=== PATIENT | female | born 1985 | race American Indian/Alaskan Native ===

== ENCOUNTER 2017-01-03 23:55 | Emergency (ER) | payer SELFPAY ==
[2017-01-04 04:20] VITALS: BP 116/82
[2017-01-04] MEDS ORDERED: MOTRIN PO ONE (04:31)
--- NOTE | 2017-01-04 05:41 | Emergency Department Report ---
HPI - General Chief Complaint: Dental/Oral Time Seen by Provider: 01/04/17 04:45 - HPI HPI: Patient here reported toothache 1 week on the left jaw lower and upper tooth. Denies any fever or chills. Denies any nausea or vomiting. She said her toothache is 10 out of 10. She says she had 4 wisdom tooth pulled in the past and she has a dentist. She says she did not call her dentist. ED Past Medical Hx - Past Medical History Previous Medical History?: No - Surgical History Past Surgical History?: Yes Additional Surgical History: TUBAL LIGATION - Family History Family history: no significant - Social History Smoking Status: Never Smoker Substance Use Type: None - Medications Home Medications: Home Medications Medication Instructions Recorded Confirmed Last Taken Type Ciprofloxacin HCl [Ciprofloxacin 500 mg PO BID #14 tablet 05/02/15 Unknown Rx TAB] Ondansetron [Zofran TAB] 4 mg PO Q8HR PRN #14 tablet 05/02/15 Unknown Rx metroNIDAZOLE [Flagyl TAB] 500 mg PO Q6HR #28 tablet 05/02/15 Unknown Rx Amoxicillin [Amoxicillin TAB] 875 mg PO BID #20 tablet 01/04/17 Unknown Rx Ibuprofen [Motrin] 800 mg PO Q8HR PRN #15 tablet 01/04/17 Unknown Rx ED Review of Systems ROS: Stated complaint: TOOTHACHE Other details as noted in HPI Comment: All other systems reviewed and negative Constitutional: denies: chills, fever Eyes: denies: vision change ENT: dental pain. denies: throat pain Respiratory: no symptoms reported Cardiovascular: denies: chest pain, palpitations, edema, syncope Gastrointestinal: denies: nausea, vomiting Skin: denies: rash Neurological: denies: headache Physical Exam - Physical Exam Vital Signs: Vital Signs 01/04/17 04:15 Temperature 98.3 F Pulse Rate 71 Respiratory 16 Rate Blood Pressure 116/82 Blood Pressure 116/82 [Left] O2 Sat by Pulse 100 Oximetry General: This is a 31-year-old female well-nourished in no acute distress. Physical Exam: Head: Normocephalic atraumatic Mouth: Moist, no pharyngeal exudate or erythema. Uvula is midline and oral airway is patent. No facial swelling. No peritonsillar abscesses. Dental caries noted without any mucosal swelling or dental tenderness. Nose: Nasal mucosa normal .Maxillary and frontal sinuses nontender to palpate Neck: Supple, no C-spine tenderness, no tracheal deviation. Nontender to palpate. no adenopathy Ears: Bilateral TMs pearly levine .bilateral EAC without any redness swelling or drainage. Eyes: Bilateral pupils equal and reactive to light, bilateral EOM intact. Bilateral sclera and conjunctiva without injection. Normal accommodation. No Lungs: Clear to auscultate bilaterally no rhonchi wheezes or rales. Normal work of breathing extremity; No CCE. +2 pulses. No neurovascular compromise Cardiovascular: S1-S2, regular rate rhythm. No murmurs. Skin: clean Dry and intact no rash no lesions Psych: Normal mood and behavior ED Course Vital Signs 01/04/17 04:15 Temperature 98.3 F Pulse Rate 71 Respiratory 16 Rate Blood Pressure 116/82 Blood Pressure 116/82 [Left] O2 Sat by Pulse 100 Oximetry - Reevaluation(s) Reevaluation #1: 01/04/17 05:51 Patient received Motrin 800 mg in triage area but she still complaining of toothache to the left tooth. She was given Tylenol 3 2 tablets. ED Medical Decision Making - Medical Decision Making ED course: She says she has a dentist therefore discussed with her that she needs to call her dentist tomorrow and schedule appointment for follow-up visit. Patient given Motrin 800 mg in emergency room and later Tylenol 3 2 tablets emergency room for dental pain. He does not have any signs of dental abscess. Patient discharged home with her family in stable condition with prescription for Motrin and amoxicillin. Critical care attestation.: If time is entered above; I have spent that time in minutes in the direct care of this critically ill patient, excluding procedure time. ED Disposition Clinical Impression: Toothache, Dental caries Disposition: DISCHARGED TO HOME OR SELFCARE Is pt being admited?: No Does the pt Need Aspirin: No Condition: Stable Instructions: Toothache (ED) Additional Instructions: F/U with Dentist and schedule appointment Take antibiotic as prescribed Prescriptions: Amoxicillin [Amoxicillin TAB] 875 mg PO BID #20 tablet Ibuprofen [Motrin] 800 mg PO Q8HR PRN #15 tablet PRN Reason: Toothache Referrals: [facility] [Outside] - 2-3 Days Forms: Work/School Release Form(ED)
[2017-01-04] MEDS ORDERED: TYLENOL #3 PO ONE (05:48)
== END 2017-01-04 06:30 | disposition home or self-care (01) ==
LOC: ED 23:55
DX: K02.9 Dental caries, unspecified (principal); Z98.51 Tubal ligation status
CPT/HCPCS: 99282

== ENCOUNTER 2017-07-08 20:54 | Emergency (ER) | payer SELFPAY ==
[2017-07-08 22:03] LABS: Alanine Aminotransferase 16 units/L (7-56); Albumin 4.4 g/dL (3.9-5); Albumin/Globulin Ratio 1.8 %; Alkaline Phosphatase 42 units/L (35-129); Anion Gap 23 mmol/L; Blood Urea Nitrogen 7 mg/dL (7-17); Carbon Dioxide 19 mmol/L (22-30); Chloride 102.6 mmol/L (98-107); Glucose 90 mg/dL (65-100); Lipase 12 units/L (13-60); Potassium 4.1 mmol/L (3.6-5.0); Sodium 140 mmol/L (137-145); Total Protein 6.9 g/dL (6.3-8.2)
[2017-07-08 22:04] LABS: Hematocrit 42.7 % (30.3-42.9); Hemoglobin 14.2 gm/dl (10.1-14.3); Mean Corpuscular HGB Conc 33 % (30-34); Mean Corpuscular Hemoglobin 31 pg (28-32); Mean Corpuscular Volume 93 fl (79-97); Platelet Count 219 K/mm3 (140-440); Red Blood Count 4.59 M/mm3 (3.65-5.03); White Blood Count 9.3 K/mm3 (4.5-11.0)
[2017-07-08 22:17] LABS: Calcium 9.4 mg/dL (8.4-10.2)
[2017-07-09 02:30] LABS: Bacteria,Urine 1+ /HPF (Negative); Bilirubin,Urine NEG (Negative); Blood,Urine SM (Negative); Ketones,Urine 20 mg/dL (Negative); Leukocyte Esterase,Urine TR (Negative); Mucus,Urine 3+ /HPF; Nitrite,Urine NEG (Negative); Trichomonas,Urine FEW /HPF
[2017-07-09] MEDS ORDERED: MACROBID PO ONE (02:44)
[2017-07-09] MEDS ORDERED: NACL 0.9% 1000 ML 1,000 ML IV ONE (03:08)
[2017-07-09] MEDS ORDERED: MORPHINE IV ONE (03:08)
--- NOTE | 2017-07-09 03:13 | Emergency Department Report ---
HPI - General Chief Complaint: Abdominal Pain Time Seen by Provider: 07/09/17 02:43 - HPI HPI: This is a 31 year-old female presents to the emergency department via EMS with complaint of lower abdominal and/or pelvic pain that has been going on since this morning. She says that over the past 2 months, when she has a menstrual cycle, she has this severe lower abdominal and/or pelvic pain. She has some nausea but denies any dysuria, vaginal discharge. She does have some vaginal bleeding as she started her menstrual cycle today. She took a few naproxen prior to presentation. She does not have a primary care physician. No recent travel or sick contacts at home. She has a history of a tubal ligation. ED Past Medical Hx - Past Medical History Hx Psychiatric Treatment: Yes (depression) - Surgical History Additional Surgical History: TUBAL LIGATION - Social History Smoking Status: Current Every Day Smoker Substance Use Type: None - Medications Home Medications: Home Medications Medication Instructions Recorded Confirmed Last Taken Type Ciprofloxacin HCl [Ciprofloxacin 500 mg PO BID #14 tablet 05/02/15 Unknown Rx TAB] Ondansetron [Zofran TAB] 4 mg PO Q8HR PRN #14 tablet 05/02/15 Unknown Rx metroNIDAZOLE [Flagyl TAB] 500 mg PO Q6HR #28 tablet 05/02/15 Unknown Rx Amoxicillin [Amoxicillin TAB] 875 mg PO BID #20 tablet 01/04/17 Unknown Rx Ibuprofen [Motrin] 800 mg PO Q8HR PRN #15 tablet 01/04/17 Unknown Rx HYDROcodone/APAP 5-325 [[place] 1 each PO Q6HR PRN #10 tablet 07/09/17 Unknown Rx 5/325] Nitrofurantoin [place]/M-Cryst 100 mg PO Q12HR #14 capsule 07/09/17 Unknown Rx [Macrobid CAP] ED Review of Systems ROS: Stated complaint: LOWER ABD PAIN Other details as noted in HPI Comment: All other systems reviewed and negative Constitutional: denies: chills, fever Eyes: denies: eye pain, eye discharge, vision change ENT: denies: ear pain, throat pain Respiratory: denies: cough, shortness of breath, wheezing Cardiovascular: denies: palpitations, edema Gastrointestinal: abdominal pain, nausea Genitourinary: denies: dysuria, hematuria Musculoskeletal: denies: joint swelling, arthralgia Skin: denies: rash, lesions Neurological: denies: headache, weakness, paresthesias Physical Exam - Physical Exam Vital Signs: Vital Signs 07/08/17 21:08 Temperature 97.9 F Pulse Rate 65 Respiratory 18 Rate Blood Pressure 123/76 O2 Sat by Pulse 100 Oximetry ED Course Vital Signs 07/08/17 21:08 Temperature 97.9 F Pulse Rate 65 Respiratory 18 Rate Blood Pressure 123/76 O2 Sat by Pulse 100 Oximetry ED Medical Decision Making - Lab Data Result diagrams: 07/08/17 21:30 07/08/17 21:30 - EKG Data -: EKG Interpreted by Me EKG shows normal: sinus rhythm (PACS), axis, intervals, QRS complexes, ST-T waves Rate: normal - EKG Data When compared to previous EKG there are: previous EKG unavailable Interpretation: normal EKG - Radiology Data Radiology results: report reviewed, image reviewed interpreted by me: Chest x-ray does not show any acute process. There are no pleural effusions, obvious pneumonia and there is no pneumothorax. Abdominal x-ray shows some nonspecific nonobstructive bowel gas. There is a small amount of stool seen. Questionably one or 2 air-fluid levels. PROCEDURE: Pelvic ultrasound, transabdominal and transvaginal with Doppler imaging. TECHNIQUE: Real-time transabdominal sonography in multiple planes of the pelvis was performed. The pelvic structures were not optimally visualized. Transvaginal sonography was then performed to better evaluate the structures and/or abnormalities described below with image documentation. Grayscale, color flow Doppler imaging and velocity spectral waveform analysis of the ovaries was employed (duplex imaging). CPT 24154, 69068, and 78506 HISTORY: pelvic pain COMPARISON: No prior studies are available for comparison. FINDINGS: UTERUS Size: 8.3 x 4.4 cm. Endometrial thickness: 5 mm. Orientation: anteverted. Cervix: Normal. Fibroids/masses: There are few calcifications identified in the uterus. These are near the endometrial pattern.. RIGHT Ovary: 3.3 x 2.4 x 2.2 cm. Appearance: Complex cysts measures 2 centimeters. Doppler images: Normal spectral waveforms and color flow. The systolic and diastolic velocities are within normal limits. LEFT Ovary: 4.3 x 3.7 x 3.1 cm. Appearance: Complex cysts identified the largest measuring 3.9 centimeters. A 2nd measuring 1.5 centimeters.. Doppler images: Normal spectral waveforms and color flow. The systolic and diastolic velocities are within normal limits. Pelvic fluid: None. Other: None. IMPRESSION: There are few calcifications identified in the anterior uterine myometrium. The endometrial pattern is normal. Complex cysts are identified in both ovaries, the largest on the left ovary measures 3.9 centimeters. - Medical Decision Making 31-year-old female presents with some lower abdominal and/or pelvic pain that started today but occurred last month about the time of her menstrual cycle, just like today. Labs are unremarkable except for a mild urinary tract infection. Patient is not . Abdominal x-ray does not show any acute process. Transvaginal ultrasound does not show any signs of torsion but there are bilateral complex ovarian cysts. Vital signs stable throughout her ED course. She'll be given referrals for [facility] and some pain medication as well as a course of Macrobid. She has been encouraged to return to the ER with any worsening of her symptoms or any acute distress. - Differential Diagnosis UTI, , fibroids, ovarian cyst, ovarian torsion Critical Care Time: No Critical care attestation.: If time is entered above; I have spent that time in minutes in the direct care of this critically ill patient, excluding procedure time. ED Disposition Clinical Impression: Dysmenorrhea, Complex cyst of left ovary, Complex cyst of right ovary UTI (urinary tract infection) Qualifiers: Urinary tract infection type: acute cystitis Hematuria presence: without hematuria Qualified Code(s): N30.00 - Acute cystitis without hematuria Disposition: - TO HOME OR SELFCARE Is pt being admited?: No Condition: Stable Instructions: Abdominal Pain (ED), Ovarian Cyst (ED), Urinary Tract Infection in Women (ED) Additional Instructions: These follow-up with a primary care physician in the next few days if possible. I have given you multiple referrals for [facility] physicians to follow up regarding your painful menstrual cycles and your ovarian cysts. Return to the emergency Department with any worsening of your symptoms or any acute distress. You have been prescribed a medication that is sedating and therefore should not be taken prior to driving, working, and responsible for children and in no way should be mixed with alcohol of any quantity. Prescriptions: HYDROcodone/APAP 5-325 [[place] 5/325] 1 each PO Q6HR PRN #10 tablet PRN Reason: Pain Nitrofurantoin [place]/M-Cryst [Macrobid CAP] 100 mg PO Q12HR #14 capsule Referrals: PRIMARY CARE [Primary Care Provider] - 3-5 Days [facility] [Provider Group] - 3-5 Days [facility] [Provider Group] - 3-5 Days [facility] [Provider Group] - 3-5 Days Time of Disposition: 05:16
[2017-07-09] MEDS ORDERED: ZOFRAN ONE (03:50)
[2017-07-09] MEDS ORDERED: ZOFRAN IV ONE (03:57)
--- NOTE | 2017-07-09 05:01 | Ultrasound Report ---
FINAL REPORT PROCEDURE: Pelvic ultrasound, transabdominal and transvaginal with Doppler imaging. TECHNIQUE: Real-time transabdominal sonography in multiple planes of the pelvis was performed. The pelvic structures were not optimally visualized. Transvaginal sonography was then performed to better evaluate the structures and/or abnormalities described below with image documentation. Grayscale, color flow Doppler imaging and velocity spectral waveform analysis of the ovaries was employed (duplex imaging). CPT 20080, 77109, and 15024 HISTORY: pelvic pain COMPARISON: No prior studies are available for comparison. FINDINGS: UTERUS Size: 8.3 x 4.4 cm. Endometrial thickness: 5 mm. Orientation: anteverted. Cervix: Normal. Fibroids/masses: There are few calcifications identified in the uterus. These are near the endometrial pattern.. RIGHT Ovary: 3.3 x 2.4 x 2.2 cm. Appearance: Complex cysts measures 2 centimeters. Doppler images: Normal spectral waveforms and color flow. The systolic and diastolic velocities are within normal limits. LEFT Ovary: 4.3 x 3.7 x 3.1 cm. Appearance: Complex cysts identified the largest measuring 3.9 centimeters. A 2nd measuring 1.5 centimeters.. Doppler images: Normal spectral waveforms and color flow. The systolic and diastolic velocities are within normal limits. Pelvic fluid: None. Other: None. IMPRESSION: There are few calcifications identified in the anterior uterine myometrium. The endometrial pattern is normal. Complex cysts are identified in both ovaries, the largest on the left ovary measures 3.9 centimeters.
--- NOTE | 2017-07-09 05:03 | Ultrasound Report ---
FINAL REPORT PROCEDURE: Pelvic ultrasound, transabdominal and transvaginal with Doppler imaging. TECHNIQUE: Real-time transabdominal sonography in multiple planes of the pelvis was performed. The pelvic structures were not optimally visualized. Transvaginal sonography was then performed to better evaluate the structures and/or abnormalities described below with image documentation. Grayscale, color flow Doppler imaging and velocity spectral waveform analysis of the ovaries was employed (duplex imaging). CPT 10490, 79114, and 94691 HISTORY: pelvic pain COMPARISON: No prior studies are available for comparison. FINDINGS: UTERUS Size: 8.3 x 4.4 cm. Endometrial thickness: 5 mm. Orientation: anteverted. Cervix: Normal. Fibroids/masses: There are few calcifications identified in the uterus. These are near the endometrial pattern.. RIGHT Ovary: 3.3 x 2.4 x 2.2 cm. Appearance: Complex cysts measures 2 centimeters. Doppler images: Normal spectral waveforms and color flow. The systolic and diastolic velocities are within normal limits. LEFT Ovary: 4.3 x 3.7 x 3.1 cm. Appearance: Complex cysts identified the largest measuring 3.9 centimeters. A 2nd measuring 1.5 centimeters.. Doppler images: Normal spectral waveforms and color flow. The systolic and diastolic velocities are within normal limits. Pelvic fluid: None. Other: None. IMPRESSION: There are few calcifications identified in the anterior uterine myometrium. The endometrial pattern is normal. Complex cysts are identified in both ovaries, the largest on the left ovary measures 3.9 centimeters.
[2017-07-09 05:32] VITALS: BP 112/73
--- NOTE | 2017-07-09 05:32 | XRay Report ---
FINAL REPORT PROCEDURE: XR ABDOMEN 2V TECHNIQUE: Abdominal series, including supine and upright AP views. HISTORY: abd pain COMPARISON: No prior studies are available for comparison. FINDINGS: Bowel gas pattern:Nonobstructive . Masses or calcifications:None . Bony structures:No significant abnormality . Pneumoperitoneum:None . Other:No significant findings . IMPRESSION: No acute abnormality.
--- NOTE | 2017-07-09 07:08 | XRay Report ---
Chest 2 views: History: Chest pain. Findings: Normal cardiomediastinal silhouette. Trachea is midline. No consolidation, pneumothorax or pleural effusion. Impression: No acute cardiopulmonary findings.
== END 2017-07-09 05:20 | disposition home or self-care (01) ==
LOC: ED 20:54
DX: N39.0 Urinary tract infection, site not specified (principal); N94.6 Dysmenorrhea, unspecified; N83.202 Unspecified ovarian cyst, left side; N83.201 Unspecified ovarian cyst, right side; F17.210 Nicotine dependence, cigarettes, uncomplicated
CPT/HCPCS: 36415; 71020; 74020; 76830; 80053; 81001; 81025; 83690; 84484; 85025; 93005; 93010; 93975; 96361; 96374; 96375; 99285; J2270; J2405; J7030

== ENCOUNTER 2017-11-19 00:35 | Emergency (ER) | payer SELFPAY ==
[2017-11-19 02:11] VITALS: BP 104/71
[2017-11-19 02:50] LABS: Basophils % (Auto) 0.3 % (0.0-1.8); Hemoglobin 13.9 gm/dl (10.1-14.3); Lymphocytes # (Auto) 1.3 K/mm3 (1.2-5.4); Lymphocytes % (Auto) 11.2 % (13.4-35.0); Mean Corpuscular HGB Conc 34 % (30-34); Mean Corpuscular Hemoglobin 32 pg (28-32); Mean Corpuscular Volume 95 fl (79-97); Monocytes # (Auto) 0.7 K/mm3 (0.0-0.8); Monocytes % (Auto) 6.5 % (0.0-7.3); Platelet Count 215 K/mm3 (140-440); Red Blood Count 4.32 M/mm3 (3.65-5.03); Red Cell Distribution Width 13.6 % (13.2-15.2)
[2017-11-19 03:16] LABS: Alanine Aminotransferase 20 units/L (7-56); Albumin 4.3 g/dL (3.9-5); BUN/Creatinine Ratio 14; Blood Urea Nitrogen 7 mg/dL (7-17); Calcium 9.1 mg/dL (8.4-10.2); Hemolysis Index 10
[2017-11-19 07:11] LABS: Bacteria,Urine 1+ /HPF (Negative); Bilirubin,Urine NEG (Negative); Blood,Urine LG (Negative); Color,Urine Amber (Yellow); Mucus,Urine 3+ /HPF; Nitrite,Urine NEG (Negative); Sperm,Urine 2+ /HPF (NP)
[2017-11-19 07:21] LABS: RBC,Urine > 182.0 /HPF (0.0-6.0)
== END 2017-11-19 05:44 | disposition left against medical advice (07) ==
LOC: ED 00:35
DX: R10.30 Lower abdominal pain, unspecified (principal); Z53.21 Procedure and treatment not carried out due to patient leaving prior to being seen by health care provider
CPT/HCPCS: 36415; 80053; 81001; 84703; 85025

== ENCOUNTER 2017-12-14 19:03 | Emergency (ER) | payer SELFPAY ==
[2017-12-14 19:40] VITALS: BP 116/67
[2017-12-14 20:11] LABS: Basophils % (Auto) 0.5 % (0.0-1.8); Eosinophils % (Auto) 0.1 % (0.0-4.3); Hematocrit 45.8 % (30.3-42.9); Lymphocytes # (Auto) 1.9 K/mm3 (1.2-5.4); Lymphocytes % (Auto) 21.2 % (13.4-35.0); Mean Corpuscular HGB Conc 33 % (30-34); Mean Corpuscular Hemoglobin 32 pg (28-32); Mean Corpuscular Volume 97 fl (79-97); Monocytes # (Auto) 0.8 K/mm3 (0.0-0.8); Monocytes % (Auto) 9.1 % (0.0-7.3); Platelet Count 229 K/mm3 (140-440); Red Blood Count 4.72 M/mm3 (3.65-5.03); Red Cell Distribution Width 14.5 % (13.2-15.2)
[2017-12-14 20:57] LABS: Albumin 4.8 g/dL (3.9-5); BUN/Creatinine Ratio 15; Blood Urea Nitrogen 9 mg/dL (7-17); Calcium 9.8 mg/dL (8.4-10.2); Hemolysis Index 108; Lipase 13 units/L (13-60)
[2017-12-14 21:08] LABS: Alanine Aminotransferase 14 units/L (7-56)
== END 2017-12-15 00:30 | disposition left against medical advice (07) ==
LOC: ED 19:03
DX: R10.9 Unspecified abdominal pain (principal); R11.2 Nausea with vomiting, unspecified; Z53.21 Procedure and treatment not carried out due to patient leaving prior to being seen by health care provider
CPT/HCPCS: 36415; 80053; 83690; 84703; 85025

== ENCOUNTER 2018-11-19 21:49 | Emergency (ER) | payer SELFPAY ==
--- NOTE | 2018-11-20 05:22 | Emergency Department Report ---
ED Female HPI - General Chief complaint: Urogenital-Female Stated complaint: FOREIGN OBJECT IN VAGINAL AREA Time Seen by Provider: 11/20/18 03:16 Source: patient Mode of arrival: Ambulatory Limitations: No Limitations - History of Present Illness Complaint: vaginal discharge, other (33-year-old -Stateless female presents emergency department complaining of possible tampon stuck of the present time area for over one year. States she was at the emergency department a year ago when the transportation engineering technician told her she felt she saw tampon in the vaginal canal, however, the provider seen her on that they did not feel it necessary to to attempt to go evaluate and remove. A few days a few weeks later. She went and was evaluated by another physician who told her that they did not see any foreign object in her vaginal region. She was again reevaluated a few months following that visit and she was advised of the same findings of no foreign bodies in the vaginal canal. She presents today for reevaluation to determine whether we think we see a foreign body in her vaginal canal. She thinks messiness straining yesterday. She reports vaginal odor and vaginal discharge. No fever, chills, sweats) Radiation: non-radiating Severity: mild Consistency: constant Improves with: none Worsens with: none Are you Now?: No - Related Data Previous Rx's Medication Instructions Recorded Last Taken Type Ciprofloxacin HCl [Ciprofloxacin 500 mg PO BID #14 tablet 05/02/15 Unknown Rx TAB] Ondansetron [Zofran TAB] 4 mg PO Q8HR PRN #14 tablet 05/02/15 Unknown Rx metroNIDAZOLE [Flagyl TAB] 500 mg PO Q6HR #28 tablet 05/02/15 Unknown Rx Amoxicillin [Amoxicillin TAB] 875 mg PO BID #20 tablet 01/04/17 Unknown Rx Ibuprofen [Motrin] 800 mg PO Q8HR PRN #15 tablet 01/04/17 Unknown Rx HYDROcodone/APAP 5-325 [[place] 1 each PO Q6HR PRN #10 tablet 07/09/17 Unknown Rx 5/325] Nitrofurantoin [place]/M-Cryst 100 mg PO Q12HR #14 capsule 07/09/17 Unknown Rx [Macrobid CAP] metroNIDAZOLE [Flagyl] 500 mg PO Q12HR #14 tab 11/20/18 Unknown Rx Allergies Allergy/AdvReac Type Severity Reaction Status Date / Time No Known Allergies Allergy Unverified 01/04/14 22:45 ED Review of Systems ROS: Stated complaint: FOREIGN OBJECT IN VAGINAL AREA Other details as noted in HPI Constitutional: denies: chills, fever Eyes: denies: eye pain, eye discharge, vision change ENT: denies: ear pain, throat pain Respiratory: denies: cough, shortness of breath, wheezing Cardiovascular: denies: chest pain, palpitations Endocrine: no symptoms reported Gastrointestinal: denies: abdominal pain, nausea, diarrhea Genitourinary: denies: urgency, dysuria, discharge Musculoskeletal: denies: back pain, joint swelling, arthralgia Skin: denies: rash, lesions Neurological: denies: headache, weakness, paresthesias Psychiatric: denies: anxiety, depression Hematological/Lymphatic: denies: easy bleeding, easy bruising ED Past Medical Hx - Past Medical History Previous Medical History?: Yes Hx Psychiatric Treatment: Yes (depression) Additional medical history: cyst on gallbladder, Brain injury - Surgical History Past Surgical History?: Yes Additional Surgical History: TUBAL LIGATION - Social History Smoking Status: Current Every Day Smoker Substance Use Type: None - Medications Home Medications: Home Medications Medication Instructions Recorded Confirmed Last Taken Type Ciprofloxacin HCl [Ciprofloxacin 500 mg PO BID #14 tablet 05/02/15 Unknown Rx TAB] Ondansetron [Zofran TAB] 4 mg PO Q8HR PRN #14 tablet 05/02/15 Unknown Rx metroNIDAZOLE [Flagyl TAB] 500 mg PO Q6HR #28 tablet 05/02/15 Unknown Rx Amoxicillin [Amoxicillin TAB] 875 mg PO BID #20 tablet 01/04/17 Unknown Rx Ibuprofen [Motrin] 800 mg PO Q8HR PRN #15 tablet 01/04/17 Unknown Rx HYDROcodone/APAP 5-325 [[place] 1 each PO Q6HR PRN #10 tablet 07/09/17 Unknown Rx 5/325] Nitrofurantoin [place]/M-Cryst 100 mg PO Q12HR #14 capsule 07/09/17 Unknown Rx [Macrobid CAP] metroNIDAZOLE [Flagyl] 500 mg PO Q12HR #14 tab 11/20/18 Unknown Rx ED Physical Exam - General Limitations: No Limitations General appearance: alert, in no apparent distress - Head Head exam: Present: atraumatic, normocephalic - Eye Eye exam: Present: normal appearance - ENT ENT exam: Present: mucous membranes moist - Neck Neck exam: Present: normal inspection - Respiratory Respiratory exam: Present: normal lung sounds bilaterally. Absent: respiratory distress - Cardiovascular Cardiovascular Exam: Present: regular rate, normal rhythm. Absent: systolic mu rmur, diastolic murmur, rubs, gallop - GI/Abdominal GI/Abdominal exam: Present: soft, normal bowel sounds - External exam: Present: normal external exam Speculum exam: Present: vaginal discharge (very heavy vaginal discharge. Evaluate the entire code male also around the cervix. No foreign body was appreciated) Bi-manual exam: Present: uterine tenderness - Extremities Exam Extremities exam: Present: normal inspection - Back Exam Back exam: Present: normal inspection - Neurological Exam Neurological exam: Present: alert, oriented X3 - Psychiatric Psychiatric exam: Present: normal affect, normal mood - Skin Skin exam: Present: warm, dry, intact, normal color. Absent: rash ED Medical Decision Making - Radiology Data Radiology results: report reviewed Ultrasound showed several left ovarian followed used measuring less than 2 cm Critical care attestation.: If time is entered above; I have spent that time in minutes in the direct care of this critically ill patient, excluding procedure time. ED Disposition Clinical Impression: Bacterial vaginal infection, Ovarian cyst, follicular Disposition: DC-01 TO HOME OR SELFCARE Is pt being admited?: No Does the pt Need Aspirin: No Condition: Stable Instructions: Bacterial Vaginosis (ED), Ovarian Cyst (ED) Prescriptions: metroNIDAZOLE [Flagyl] 500 mg PO Q12HR #14 tab Referrals: [facility] [Other] - 3-5 Days Forms: STI Treatment and Prevention
[2018-11-20 05:26] LABS: Bilirubin,Urine NEG (Negative); Blood,Urine NEG (Negative); Calcium Oxalate Crystals,Urine 1+; Color,Urine Yellow (Yellow); Mucus,Urine 1+ /HPF; Protein,Urine <15 mg/dL mg/dL (Negative)
--- NOTE | 2018-11-20 06:31 | Ultrasound Report ---
FINAL REPORT EXAM: US EXAM PELVIC COMPLETE HISTORY: SUSPECT FB TO PELVIS & HAS DISCHARGE TOO COMPARISONS: 07/09/2017 FINDINGS: Transabdominal grayscale, color and spectral Doppler pelvic ultrasound The uterus appears retroflexed/retroverted and measures approximately 9.9 x 5.6 x 6.4 cm. Myometrium is within normal limits. Endometrium appears homogeneous and measures approximately 13 millimeters in length. The right ovary is not visualized. The left ovary measures 3.9 x 2.2 x 3.3 cm and contains several fo llicles measuring less than 2 cm. Vascular waveforms are within normal limits. IMPRESSION: The endometrium is within normal limits. No evident foreign body or other acute pelvic finding.
[2018-11-20 07:16] VITALS: BP 101/71
== END 2018-11-20 07:18 | disposition home or self-care (01) ==
LOC: ED 21:49
DX: N76.0 Acute vaginitis (principal); F32.9 Major depressive disorder, single episode, unspecified; F17.200 Nicotine dependence, unspecified, uncomplicated; Z98.51 Tubal ligation status
CPT/HCPCS: 76856; 81001; 87210; 87591; 99284

== ENCOUNTER 2019-02-22 07:32 | Emergency (ER) | payer MEDICAID ==
[2019-02-22 07:40] VITALS: BP 125/74
[2019-02-22 08:13] LABS: Hematocrit 44.1 % (30.3-42.9); Hemoglobin 14.7 gm/dl (10.1-14.3); Mean Corpuscular HGB Conc 33 % (30-34); Mean Corpuscular Volume 97 fl (79-97); Platelet Count 223 K/mm3 (140-440); Red Blood Count 4.57 M/mm3 (3.65-5.03); Red Cell Distribution Width 14.2 % (13.2-15.2)
[2019-02-22 09:00] LABS: Bacteria,Urine 1+ /HPF (Negative); Bilirubin,Urine NEG (Negative); Blood,Urine LG (Negative); Color,Urine Yellow (Yellow); Mucus,Urine 3+ /HPF; RBC,Urine > 182.0 /HPF (0.0-6.0)
[2019-02-22 09:03] LABS: Alanine Aminotransferase 14 units/L (7-56); Albumin 4.3 g/dL (3.9-5); Calcium 8.8 mg/dL (8.4-10.2); Hemolysis Index 34
[2019-02-22 09:23] LABS: BUN/Creatinine Ratio 12; Blood Urea Nitrogen 6 mg/dL (7-17)
[2019-02-22 09:37] LABS: Basophils % (Manual) 0 % (0.0-1.8); Total Cells Counted 100
[2019-02-22 09:38] LABS: Anisocytosis Few; Large Platelets Few; Platelet Estimate Consistent w Auto; Poikilocytosis Few; Target Cells Rare
== END 2019-02-22 08:47 | disposition left against medical advice (07) ==
LOC: ED 07:32
DX: R10.9 Unspecified abdominal pain (principal); Z53.21 Procedure and treatment not carried out due to patient leaving prior to being seen by health care provider
CPT/HCPCS: 36415; 80053; 81001; 84703; 85007; 85025

== ENCOUNTER 2019-02-22 09:26 | Emergency (ER) | payer MEDICAID ==
[2019-02-22 09:35] VITALS: BP 100/70
[2019-02-22] MEDS ORDERED: NACL 0.9% 1000 ML 1,000 ML IV ONE (10:23)
[2019-02-22] MEDS ORDERED: VISTARIL PO ONE (10:23)
[2019-02-22] MEDS ORDERED: ZOFRAN IV ONE (10:23)
--- NOTE | 2019-02-22 10:26 | Emergency Department Report ---
ED Abdominal Pain HPI - General Chief Complaint: Abdominal Pain Stated Complaint: ABD PAIN/EXTREME/ANXIETY Time Seen by Provider: 02/22/19 10:21 Source: patient Mode of arrival: Ambulatory Limitations: No Limitations - History of Present Illness Initial Comments: Wesley is a 33-year-old -Thai female who comes to the ER today complaining of problems with her gallbladder. She complains of pain and vomiting. She also states she's having a problem with her anxiety. Patient states that her anxiety is worsening. She takes Zoloft at home and is compliant. She has no HI or SI. Patient was seen yesterday but left without being seen. Her labs were reviewed and were grossly normal. Lipase was added to today's workup. Associated Symptoms: nausea, vomiting, diarrhea. denies: fever, chills, constipation, dysuria, hematemesis, hematochezia, melena, hematuria, anorexia, syncope - Related Data Previous Rx's Medication Instructions Recorded Last Taken Type Ondansetron [Zofran Odt] 4 mg PO Q8HR PRN #10 tab.rapdis 02/22/19 Unknown Rx hydrOXYzine PAMOATE [Vistaril] 25 mg PO Q6HR PRN #20 capsule 02/22/19 Unknown Rx metroNIDAZOLE [Flagyl] 500 mg PO Q12HR #20 tab 02/22/19 Unknown Rx Allergies Allergy/AdvReac Type Severity Reaction Status Date / Time No Known Allergies Allergy Unverified 01/04/14 22:45 ED Review of Systems ROS: Stated complaint: ABD PAIN/EXTREME/ANXIETY Other details as noted in HPI Comment: All other systems reviewed and negative ED Past Medical Hx - Past Medical History Previous Medical History?: Yes Hx Psychiatric Treatment: Yes (depression) Additional medical history: cyst on gallbladder, Brain injury - Surgical History Past Surgical History?: Yes Additional Surgical History: TUBAL LIGATION - Family History Family history: no significant - Social History Smoking Status: Never Smoker - Medications Home Medications: Home Medications Medication Instructions Recorded Confirmed Last Taken Type Ondansetron [Zofran Odt] 4 mg PO Q8HR PRN #10 tab.rapdis 02/22/19 Unknown Rx hydrOXYzine PAMOATE [Vistaril] 25 mg PO Q6HR PRN #20 capsule 02/22/19 Unknown Rx metroNIDAZOLE [Flagyl] 500 mg PO Q12HR #20 tab 02/22/19 Unknown Rx ED Physical Exam - General Limitations: No Limitations General appearance: alert - Head Head exam: Present: normocephalic - Eye Eye exam: Present: normal appearance, PERRL - ENT ENT exam: Present: mucous membranes moist - Neck Neck exam: Present: normal inspection, full ROM - Respiratory Respiratory exam: Present: normal lung sounds bilaterally - Cardiovascular Cardiovascular Exam: Present: regular rate - GI/Abdominal GI/Abdominal exam: Present: soft, normal bowel sounds. Absent: distended, tenderness, guarding, rebound, diminished bowel sounds, hyperactive bowel sounds, hypoactive bowel sounds, organomegaly - Rectal Rectal exam: Present: deferred - Extremities Exam Extremities exam: Present: normal inspection, full ROM - Back Exam Back exam: Present: normal inspection, full ROM. Absent: tenderness, CVA tenderness (R), CVA tenderness (L) - Neurological Exam Neurological exam: Present: alert, oriented X3, CN II-XII intact, normal gait - Psychiatric Psychiatric exam: Present: normal affect, normal mood - Skin Skin exam: Present: warm, dry, intact ED Course Vital Signs 02/22/19 09:33 Temperature 98.2 F Pulse Rate 76 Respiratory 20 Rate Blood Pressure 100/70 O2 Sat by Pulse 100 Oximetry ED Medical Decision Making - Medical Decision Making Lab Results 02/22/19 Range/Units 10:42 Lipase 17 (13-60) units/L Vital Signs 02/22/19 09:33 Temperature 98.2 F Pulse Rate 76 Respiratory 20 Rate Blood Pressure 100/70 O2 Sat by Pulse 100 Oximetry see labs from last night pt left without being seen urine noted. labs noted. lipase normal. pt here in er several hours with no n/v. she has been in stretcher sleeping with her boyfriend beside her. The patient states that she was told here that she had gallbladder trouble. However, there is no abdominal imaging. And her lipase is always been normal. I discussed this with the patient. Patient does see Dr. Anand salgado and has been referred back for further workup of her gallbladder given the normal lipase today. Her abdominal exam is unremarkable without tenderness. She's had no vomiting in the ER. VSS taking po pt has vag dc which she states she gets BV often. Her lack of concern about STI in the setting of her abd pain and urine findings are concerning so I am treating her with azithro and rocephin. Will dc home on flagyl for BV. Will give her vistaril for her anxiety. no hi. no si. discussed follow up with pcp for further treatment. will dc home with follow up. VSS. Critical care attestation.: If time is entered above; I have spent that time in minutes in the direct care of this critically ill patient, excluding procedure time. ED Disposition Clinical Impression: Anxiety, Abdominal pain, Vaginitis Disposition: DC-01 TO HOME OR SELFCARE Is pt being admited?: No Does the pt Need Aspirin: No Condition: Stable Instructions: Abdominal Pain (ED) Additional Instructions: DIET TOLERATED MEDS ORDERED TODAY IN ER FOLLOW INSTRUCTIONS ON THE BOTTLE FOLLOW UP PCP WITHIN 48 HOURS TO ENSURE YOU ARE GETTING BETTER ACTIVITY TOLERATED MOTRIN OR TYLENOL FOR PAIN OR FEVER RETURN TO THE ER FOR WORSENING SYMPTOMS NOT RELIEVED BY YOUR MEDICATIONS. safe sex follow up with MD below next week bland diet Prescriptions: metroNIDAZOLE [Flagyl] 500 mg PO Q12HR #20 tab hydrOXYzine PAMOATE [Vistaril] 25 mg PO Q6HR PRN #20 capsule PRN Reason: Anxiety Ondansetron [Zofran Odt] 4 mg PO Q8HR PRN #10 tab.rapdis PRN Reason: Vomiting Referrals: HUMPHREY MCCOY MD [Primary Care Provider] - 3-5 Days Time of Disposition: 12:08
[2019-02-22] MEDS ORDERED: XYLOCAINE 1% MPF 5 mL INFILTRATI ONE (12:08)
[2019-02-22] MEDS ORDERED: ROCEPHIN IM ONE (12:08)
[2019-02-22] MEDS ORDERED: ZITHROMAX PO ONE (12:09)
== END 2019-02-22 12:34 | disposition home or self-care (01) ==
LOC: ED 09:26
DX: N76.0 Acute vaginitis (principal); B96.89 Other specified bacterial agents as the cause of diseases classified elsewhere; F41.9 Anxiety disorder, unspecified; Z98.51 Tubal ligation status
CPT/HCPCS: 36415; 83690; 96361; 96372; 96374; 99283; J0696; J2405; J7030; 80053; 81001; 84703; 85007; 85025; Q0177

== ENCOUNTER 2019-03-15 | Emergency (ER) | payer MEDICAID ==
[2019-03-15 00:15] VITALS: BP 118/82
--- NOTE | 2019-03-15 01:56 | Emergency Department Report ---
ED Female HPI - General Chief complaint: Urogenital-Female Stated complaint: UNK Time Seen by Provider: 03/15/19 01:55 Source: patient Mode of arrival: Ambulatory Limitations: No Limitations - History of Present Illness Initial comments: 33-year-old -[place] female reports emergency room for burning with urination for 2 days. Patient denies abdominal pain or nausea no vomiting no urinary urgency or frequency. Patient is 6 para 3. Last menstrual period was 02/09/2019. Patient denies any vaginal discharge and vaginal bleeding. She was recently treated for a bacterial infection with Flagyl on 02/22/2019. Complaint: dysuria Onset/Timin -: days(s) Severity scale (0 -10): 0 Improves with: none Worsens with: urination Are you Now?: No Last Menstrual Period: 02/09/19 EDC: 11/16/19 Associated Symptoms: denies other symptoms - Related Data Sexually active: Yes : 6 Para: 3 Previous Rx's Medication Instructions Recorded Last Taken Type Ondansetron [Zofran Odt] 4 mg PO Q8HR PRN #10 tab.rapdis 02/22/19 Unknown Rx hydrOXYzine PAMOATE [Vistaril] 25 mg PO Q6HR PRN #20 capsule 02/22/19 Unknown Rx metroNIDAZOLE [Flagyl] 500 mg PO Q12HR #20 tab 02/22/19 Unknown Rx Allergies Allergy/AdvReac Type Severity Reaction Status Date / Time No Known Allergies Allergy Unverified 01/04/14 22:45 ED Review of Systems ROS: Stated complaint: UNK Other details as noted in HPI ED Past Medical Hx - Past Medical History Previous Medical History?: Yes Hx Psychiatric Treatment: Yes (depression) Additional medical history: cyst on gallbladder, Brain injury - Surgical History Past Surgical History?: Yes Additional Surgical History: TUBAL LIGATION - Social History Smoking Status: Current Every Day Smoker Substance Use Type: None - Medications Home Medications: Home Medications Medication Instructions Recorded Confirmed Last Taken Type Ondansetron [Zofran Odt] 4 mg PO Q8HR PRN #10 tab.rapdis 02/22/19 Unknown Rx hydrOXYzine PAMOATE [Vistaril] 25 mg PO Q6HR PRN #20 capsule 02/22/19 Unknown Rx metroNIDAZOLE [Flagyl] 500 mg PO Q12HR #20 tab 02/22/19 Unknown Rx ED Physical Exam - General Limitations: No Limitations General appearance: alert, in no apparent distress - Head Head exam: Present: atraumatic, normocephalic - Eye Eye exam: Present: normal appearance - ENT ENT exam: Present: mucous membranes moist - Neck Neck exam: Present: normal inspection - Respiratory Respiratory exam: Present: normal lung sounds bilaterally. Absent: respiratory distress - Cardiovascular Cardiovascular Exam: Present: regular rate, normal rhythm. Absent: systolic murmur, diastolic murmur, rubs, gallop - Extremities Exam Extremities exam: Present: normal inspection - Back Exam Back exam: Present: normal inspection - Neurological Exam Neurological exam: Present: alert, oriented X3, normal gait - Psychiatric Psychiatric exam: Present: normal affect, normal mood - Skin Skin exam: Present: warm, dry, intact, normal color. Absent: rash ED Course Vital Signs 03/15/19 03/15/19 00:13 04:20 Temperature 98.1 F Pulse Rate 75 83 Respiratory 18 14 Rate Blood Pressure 118/82 O2 Sat by Pulse 100 100 Oximetry ED Medical Decision Making - Lab Data Laboratory Tests 03/15/19 03/15/19 02:32 03:08 Urine Color Yellow Urine Turbidity Slightly-cloudy Urine pH 6.0 Ur Specific [place] 1.028 Urine Protein <15 mg/dl Urine Glucose (UA) Neg Urine Ketones Neg Urine Blood Sm Urine Nitrite Neg Urine Bilirubin Neg Urine Urobilinogen < 2.0 Ur Leukocyte Esterase Sm Urine WBC (Auto) 5.0 Urine RBC (Auto) 28.0 U Epithel Cells (Auto) 5.0 Calcium Oxalate Crystal 2+ Urine Mucus 3+ Urine HCG, Qual Negative Critical care attestation.: If time is entered above; I have spent that time in minutes in the direct care of this critically ill patient, excluding procedure time. ED Disposition Clinical Impression: Dysuria Disposition: DC-01 TO HOME OR SELFCARE Is pt being admited?: No Does the pt Need Aspirin: No Condition: Stable Instructions: Dysuria (ED) Additional Instructions: Please increase her fluid intake eventually as tolerated. Follow-up with [facility] provider for further evaluation. Referrals: PING BAILEY MD [Primary Care Provider] - 3-5 Days [facility] [Provider [facility]] - 3-5 Days
[2019-03-15 03:22] LABS: HCG Qualitative,Urine Negative (Negative)
[2019-03-15 03:23] LABS: Bilirubin,Urine NEG (Negative); Blood,Urine SM (Negative); Calcium Oxalate Crystals,Urine 2+; Color,Urine Yellow (Yellow); Mucus,Urine 3+ /HPF; Protein,Urine <15 mg/dL mg/dL (Negative); Urobilinogen,Urine < 2.0 mg/dL (<2.0)
== END 2019-03-15 04:20 | disposition home or self-care (01) ==
LOC: ED
DX: R30.0 Dysuria (principal); F17.200 Nicotine dependence, unspecified, uncomplicated; Z98.51 Tubal ligation status
CPT/HCPCS: 81001; 81025; 99283

== ENCOUNTER 2021-01-22 18:25 | Emergency (ER) | payer MEDICAID ==
[2021-01-22] MEDS ORDERED: MORPHINE 4 MG/1 ML INJ IV STA (23:27)
[2021-01-22] MEDS ORDERED: ONDANSETRON 4 MG/2 ML INJ IV STA (23:27)
[2021-01-22] MEDS ORDERED: SODIUM CHLORIDE 0.9% 1000 ML 1,000 ML IV ONE (23:27)
[2021-01-23 00:44] LABS: Basophils # (Auto) 0.1 K/mm3 (0.0-0.1); Basophils % (Auto) 0.6 % (0.0-1.8); Hematocrit 40.3 % (30.3-42.9); Hemoglobin 13.8 gm/dl (10.1-14.3); Lymphocytes # (Auto) 1.7 K/mm3 (1.2-5.4); Lymphocytes % (Auto) 17.7 % (13.4-35.0); Mean Corpuscular HGB Conc 34 % (30-34); Mean Corpuscular Volume 96 fl (79-97); Monocytes # (Auto) 0.5 K/mm3 (0.0-0.8); Monocytes % (Auto) 5.4 % (0.0-7.3); Platelet Count 202 K/mm3 (140-440); Red Blood Count 4.21 M/mm3 (3.65-5.03); Red Cell Distribution Width 13.8 % (13.2-15.2)
[2021-01-23 01:25] LABS: Alanine Aminotransferase 11 units/L (7-56); Albumin 4.4 g/dL (3.9-5); Blood Urea Nitrogen 6 mg/dL (7-17); Calcium 8.8 mg/dL (8.4-10.2); Hemolysis Index 7
[2021-01-23 01:26] LABS: BUN/Creatinine Ratio 12
--- NOTE | 2021-01-23 02:44 | Emergency Department Report ---
<[id number] - Last Filed: 01/23/21 02:39> ED Abdominal Pain HPI - General Chief Complaint: Abdominal Pain Stated Complaint: ABD PAIN Time Seen by Provider: 01/22/21 23:26 Source: patient Mode of arrival: Ambulatory Limitations: No Limitations - History of Present Illness Initial Comments: 35-year-old -[place] female smoker presents emerged department complaining of a 2-day history of worsening left lower quadrant abdominal pain associated with nausea vomiting and occasional diarrhea. No hemoptysis, no manoj temesis no hematochezia, no fever, chills, sweats, no chest pain or back pain MD Complaint: abdominal pain -: Gradual Location: LLQ Radiation: none Migration to: no migration, LLQ Severity scale (0 -10): 3 Quality: dull Consistency: constant Improves With: nothing Worsens With: nothing Associated Symptoms: denies other symptoms - Related Data Previous Rx's Medication Instructions Recorded Last Taken Type Ondansetron [Zofran Odt] 4 mg PO Q8HR PRN #10 tab.rapdis 02/22/19 Unknown Rx hydrOXYzine PAMOATE [Vistaril] 25 mg PO Q6HR PRN #20 capsule 02/22/19 Unknown Rx metroNIDAZOLE [Flagyl] 500 mg PO Q12HR #20 tab 02/22/19 Unknown Rx Dicyclomine [Bentyl] 10 mg PO QID PRN #15 capsule 01/23/21 Unknown Rx Ondansetron [Zofran Odt] 4 mg PO Q8HR PRN #12 tab.rapdis 01/23/21 Unknown Rx Allergies Allergy/AdvReac Type Severity Reaction Status Date / Time naproxen [From Naprosyn] Allergy Rash Verified 01/22/21 19:36 ED Review of Systems Comment: All other systems reviewed and negative ED Past Medical Hx - Past Medical History Previous Medical History?: Yes Hx Psychiatric Treatment: Yes (depression) Additional medical history: cyst on gallbladder, Brain injury - Surgical History Past Surgical History?: Yes Additional Surgical History: TUBAL LIGATION - Social History Smoking Status: Current Every Day Smoker Substance Use Type: None - Medications Home Medications: Home Medications Medication Instructions Recorded Confirmed Last Taken Type Ondansetron [Zofran Odt] 4 mg PO Q8HR PRN #10 tab.rapdis 02/22/19 Unknown Rx hydrOXYzine PAMOATE [Vistaril] 25 mg PO Q6HR PRN #20 capsule 02/22/19 Unknown Rx metroNIDAZOLE [Flagyl] 500 mg PO Q12HR #20 tab 02/22/19 Unknown Rx Dicyclomine [Bentyl] 10 mg PO QID PRN #15 capsule 01/23/21 Unknown Rx Ondansetron [Zofran Odt] 4 mg PO Q8HR PRN #12 tab.rapdis 01/23/21 Unknown Rx ED Physical Exam - General Limitations: No Limitations General appearance: alert, in no apparent distress - Head Head exam: Present: atraumatic, normocephalic - Eye Eye exam: Present: normal appearance, PERRL, EOMI Pupils: Present: normal accommodation - ENT ENT exam: Present: mucous membranes moist, TM's normal bilaterally - Neck Neck exam: Present: normal inspection, full ROM - Respiratory Respiratory exam: Present: normal lung sounds bilaterally. Absent: respiratory distress - Cardiovascular Cardiovascular Exam: Present: regular rate, normal rhythm. Absent: systolic murmur, diastolic murmur, rubs, gallop - GI/Abdominal GI/Abdominal exam: Present: soft, tenderness (Left lower quadrant with palpation.), normal bowel sounds. Absent: hypoactive bowel sounds, organ omegaly, mass, bruit, pulsatile mass, hernia - Extremities Exam Extremities exam: Present: normal inspection, normal capillary refill - Back Exam Back exam: Present: normal inspection. Absent: CVA tenderness (R), CVA tend erness (L) - Neurological Exam Neurological exam: Present: alert, oriented X3, CN II-XII intact, normal gait - Psychiatric Psychiatric exam: Present: normal affect, normal mood - Skin Skin exam: Present: warm, dry, intact, normal color. Absent: rash ED Medical Decision Making - Lab Data Result diagrams: 01/22/21 23:43 01/22/21 23:43 ED Disposition Clinical Impression: Abdominal pain Qualifiers: Abdominal location: lower abdomen, unspecified Qualified Code(s): R10.30 - Lower abdominal pain, unspecified Disposition: DC- TO HOME OR SELFCARE Condition: Stable Instructions: Abdominal Pain (ED), Abdominal Pain, Adult, [id number] Additional Instructions: take medication as prescribed return to emertency if symptoms worsen Prescriptions: Dicyclomine [Bentyl] 10 mg PO QID PRN #15 capsule PRN Reason: abd spasm Ondansetron [Zofran Odt] 4 mg PO Q8HR PRN #12 tab.rapdis PRN Reason: Nausea Referrals: PING BAILEY MD [Staff Physician] - 3-5 Days Forms: Work/School Release Form(ED) <ONEYDA COLBY - Last Filed: 01/23/21 05:00> ED Review of Systems ROS: Stated complaint: ABD PAIN Other details as noted in HPI ED Medical Decision Making - Lab Data Result diagrams: 01/22/21 23:43 01/22/21 23:43 - Radiology Data Radiology results: report reviewed, image reviewed CT ABDOMEN AND PELVIS WITH IV CONTRAST INDICATION: Patient complains of lower abdominal pain. COMPARISON: None available. TECHNIQUE: All CT scans at this facility use dose modulation, automated exposure control, iterative reconstruction or weight based dosing, when appropriate, to reduce radiation dose to as low as reasonably achievable. FINDINGS: Lung Bases: No significant abnormality. Skeletal System: No acute abnormality. ABDOMEN: Liver: No significant abnormality. Gallbladder: No significant abnormality. Bile Ducts: No significant abnormality. Pancreas: No significant abnormality. Spleen: No significant abnormality. Adrenals: No significant abnormality. Right Kidney: No significant abnormality. Left Kidney: No significant abnormality. Upper GI tract: No significant abnormality. Lymph Nodes: No significant adenopathy. Aorta: No significant abnormality. Additional Findings: No significant abnormality. PELVIS: Colon: No acute abnormality. Urinary Bladder and Distal Ureters: No significant abnormality. Appendix: No significant abnormality. Lymph Nodes: No significant adenopathy. Additional Findings: Pelvic loops of distal small bowel are mildly distended with fluid. Trace free fluid in the cul-de-sac could be physiologic. IMPRESSION: 1. Fluid-filled loops of distal small bowel could be seen in the setting of mild enteritis, correlate clinically. The appendix is normal. 2. Trace free fluid in the pelvis could be physiologic. Signer Name: Ismael Montes MD Signed: 01/23/2021 3:16 AM Workstation Name: [id number] Transcribed By: MIRZA Dictated By: Ismael Montes MD Electronically Authenticated By: Ismael Montes MD Signed Date/Time: 01/23/21315 DD/ 2 TD/TT: - Medical Decision Making CT no bleeding no soft tissue abnormality. Patient is currently tolerating p.o. intake patient is having normal bowel movements at this time. Pain is reduced to 1/10. Patient is resting quietly without acute distress. Plan DC to home in stable condition. Patient will follow with primary care doctor in 2 to 3 days. Patient will return to ED should symptoms worsen. Patient DC'd home in stable condition at this time. Patient amatory with no acute distress. Critical care attestation.: If time is entered above; I have spent that time in minutes in the direct care of this critically ill patient, excluding procedure time. ED Disposition Is pt being admited?: No Does the pt Need Aspirin: No Time of Disposition: 05:00
--- NOTE | 2021-01-23 03:20 | Cat Scan Report ---
CT ABDOMEN AND PELVIS WITH IV CONTRAST INDICATION: Patient complains of lower abdominal pain. COMPARISON: None available. TECHNIQUE: All CT scans at this facility use dose modulation, automated exposure control, iterative reconstructi on or weight based dosing, when appropriate, to reduce radiation dose to as low as reasonably achieva ble. FINDINGS: Lung Bases: No significant abnormality. Skeletal System: No acute abnormality. ABDOMEN: Liver: No significant abnormality. Gallbladder: No significant abnormality. Bile Ducts: No significant abnormality. Pancreas: No significant abnormality. Spleen: No significant abnormality. Adrenals: No significant abnormality. Right Kidney: No significant abnormality. Left Kidney: No significant abnormality. Upper GI tract: No significant abnormality. Lymph Nodes: No significant adenopathy. Aorta: No significant abnormality. Additional Findings: No significant abnormality. PELVIS: Colon: No acute abnormality. Urinary Bladder and Distal Ureters: No significant abnormality. Appendix: No significant abnormality. Lymph Nodes: No significant adenopathy. Additional Findings: Pelvic loops of distal small bowel are mildly distended with fluid. Trace free f luid in the cul-de-sac could be physiologic. IMPRESSION: 1. Fluid-filled loops of distal small bowel could be seen in the setting of mild enteritis, correlat e clinically. The appendix is normal. 2. Trace free fluid in the pelvis could be physiologic. Signer Name: Ismael Montes MD Signed: 01/23/2021 3:16 AM Workstation Name: [id number]
[2021-01-23 05:09] VITALS: BP 123/87
== END 2021-01-23 05:10 | disposition home or self-care (01) ==
LOC: ED 18:25
DX: R10.32 Left lower quadrant pain (principal); F32.9 Major depressive disorder, single episode, unspecified; F17.200 Nicotine dependence, unspecified, uncomplicated; Z79.899 Other long term (current) drug therapy; Z88.8 Allergy status to other drugs, medicaments and biological substances
CPT/HCPCS: 36415; 74177; 80053; 83690; 85025; 96361; 96374; 96375; 99284; J2270; J2405; J7030; Q9967